=== PATIENT | female | born 1960 | race Caucasian/White ===

== ENCOUNTER 2017-01-22 11:20 | Emergency (ER) | payer OTHER ==
[~2017-01-22] VITALS: Ht 160 cm; Wt 126.1 kg
[2017-01-22] MEDS ORDERED: ADV250INH INH (11:31)
[2017-01-22] MEDS ORDERED: RANI15TA PO (11:31)
[2017-01-22] MEDS ORDERED: LEVO25TA5 PO (11:31)
[2017-01-22] MEDS ORDERED: XYZA5TAB2 PO (11:31)
[2017-01-22] MEDS ORDERED: SING10TA32 PO (11:31)
[2017-01-22] MEDS ORDERED: NS 1,000 ML IV ONE (12:15)
[2017-01-22 13:49] LABS: BASO % 0.3 % (0.0-1.0); EOS # 0.2 K/mm3 (0.0-0.50); EOS % 2.8 % (0.0-3.0); LARGE UNSTAINED CELL # 0.1 K/mm3 (0.0-0.4); LYMPH # 0.9 K/mm3 (1.5-4.5); LYMPH % 17.2 % (24.0-44.0); MEAN CORPUSCULAR HEMOGLOBIN 31.9 pg (27.0-33.0); MEAN CORPUSCULAR HGB CONC 32.9 g/dl (32.0-36.5); MEAN CORPUSCULAR VOLUME 97.1 fl (80.0-96.0); MONO # 0.3 K/mm3 (0.0-0.8); MONO % 6.1 % (0.0-5.0); NEUTROPHILS # 3.7 K/mm3 (1.8-7.7); NEUTROPHILS % 71.6 % (36.0-66.0); PLATELET COUNT, AUTOMATED 213 k/mm3 (150-450); RED CELL DISTRIBUTION WIDTH 12.6 % (11.5-14.5); WHITE BLOOD COUNT 5.2 K/mm3 (4.0-10.0)
[2017-01-22 14:04] LABS: ANION GAP 8 MEQ/L (8-16); BLOOD UREA NITROGEN 10 MG/DL (7-18); CALCIUM LEVEL 8.6 MG/DL (8.5-10.1); CARBON DIOXIDE LEVEL 27 MEQ/L (21-32); CHLORIDE LEVEL 109 MEQ/L (98-107); CREATININE FOR GFR 0.72 MG/DL (0.55-1.02); GLOMERULAR FILTRATION RATE > 60.0 (>51); GLUCOSE, FASTING 85 MG/DL (70-105); POTASSIUM SERUM 4.1 MEQ/L (3.5-5.1); SODIUM LEVEL 144 MEQ/L (136-145)
[2017-01-22] MEDS ORDERED: ISOVUE-370 76% 100ML VIAL (Q9967) As Ordered ONE (14:25)
[2017-01-22 14:26] LABS: ERYTHROCYTE SEDIMENTATION RATE 17 mm/hr (0-30)
--- NOTE | 2017-01-22 14:51 | REP ---
CT Head without contrast HISTORY: Headache COMPARISON: None There is no intraparenchymal hemorrhage, acute infarct, mass or midline shift. The ventricular system is normal in appearance. There is no extra cerebral collection. There is no fracture. The visualized sinuses are clear. IMPRESSION: There is no intracranial lesion. Signed by Elgin Miles MD 01/22/2017 02:42 P
--- NOTE | 2017-01-22 15:11 | REP ---
CT NECK WITH CONTRAST: HISTORY: Swelling. Contrast: Isovue 370, 75 mL. The naso-, margaret-, and hypopharynx, larynx, and subglottic trachea are normal in appearance. The salivary and thyroid glands are normal. Small lymph nodes less than 1 cm in size are present in the internal jugular chains, posterior triangles, submandibular and submental areas. Atherosclerotic calcification is present at the left carotid bifurcation. The lung apices are clear. Minimal mucosal thickening is present in the maxillary sinuses. IMPRESSION: There is no neck mass or adenopathy. Signed by Elgin Miles MD 01/22/2017 03:11 P
[2017-01-22] MEDS ORDERED: AUGM875T27 PO (15:49)
[2017-01-22 16:13] VITALS: BP 160/84
== END 2017-01-22 16:17 | disposition home or self-care (01) ==
LOC: M ED 11:59
DX: R22.1 Localized swelling, mass and lump, neck (principal)
CPT/HCPCS: 70450; 70491; 80048; 83615; 85025; 85652; 86140; 96360; 96361; 99283; Q9967

== ENCOUNTER → 2017-05-15 | Outpatient (CLI) | payer OTHER ==
[~2017-05-15] MED LIST: ADV250INH INH; AUGM875T28 PO; ISOVUE-370 76% 100ML VIAL (Q9967) As Ordered ONE; LEVO25TA5 PO; RANI15TA PO; SING10TA32 PO; XYZA5TAB2 PO
--- NOTE | 2017-05-15 10:07 | REP ---
Limited abdominal wall ultrasound for palpable lump: Ultrasonography of the palpable lump in the left upper quadrant inferior to the ribs identifies no definitive mass by ultrasound. The patient states the area is tender to transducer pressure. Consider MRI or CT to evaluate for lipoma. Signed by Moncho Gallegos MD 05/15/2017 09:57 A
== END ==
LOC: M RAD 09:14
PROVIDERS: ATTEND Emergency Medicine
DX: R19.02 Left upper quadrant abdominal swelling, mass and lump (principal)

== ENCOUNTER → 2017-05-18 | Outpatient (CLI) | payer OTHER ==
[~2017-05-18] MED LIST changes: -ISOVUE-370 76% 100ML VIAL (Q9967) As Ordered ONE
[2017-05-18 12:05] LABS: ANION GAP 6 MEQ/L (8-16); BLOOD UREA NITROGEN 14 MG/DL (7-18); CALCIUM LEVEL 9.4 MG/DL (8.5-10.1); CARBON DIOXIDE LEVEL 27 MEQ/L (21-32); CHLORIDE LEVEL 103 MEQ/L (98-107); CREATININE FOR GFR 0.84 MG/DL (0.55-1.02); GLOMERULAR FILTRATION RATE > 60.0 (>51); GLUCOSE, FASTING 97 MG/DL (70-105); POTASSIUM SERUM 4.2 MEQ/L (3.5-5.1); SODIUM LEVEL 136 MEQ/L (136-145)
--- NOTE | 2017-05-20 01:56 | REP ---
Clinical: Abdominal pain. Technique: Axial contrast enhanced images from the lung bases to the pubic symphysis using 100 ml Isovue 370 intravenous contrast material with coronal and sagittal re-formations. Findings: Lung bases are clear. Visualized heart and pericardium are normal. Liver, spleen, pancreas, gallbladder, bilateral adrenal glands and kidneys are normal. The enteric system is without obstruction or acute inflammatory process. Scattered sigmoid diverticula noted without acute diverticulitis. Pelvis demonstrates normal bladder and adnexa with evidence for prior hysterectomy. No pelvic fluid/ascites. No intraperitoneal or retroperitoneal adenopathy. No free air. No mass lesion. 2.5 cm fat containing periumbilical hernia noted. Vasculature appears normal and without aortic aneurysm or dissection. Musculoskeletal structures demonstrate age-related changes without focal osseous abnormality. Impression: Fat containing periumbilical hernia. Scattered sigmoid diverticula without acute diverticulitis. Evidence of prior hysterectomy. No ascites, adenopathy, or mass lesion appreciated. Signed by Rohan Church MD 05/20/2017 01:47 A
== END ==
LOC: M LAB 10:35
PROVIDERS: ATTEND Emergency Medicine
DX: R10.9 Unspecified abdominal pain (principal); K42.9 Umbilical hernia without obstruction or gangrene; K57.32 Diverticulitis of large intestine without perforation or abscess without bleeding; Z90.710 Acquired absence of both cervix and uterus

== ENCOUNTER → 2017-06-12 | Outpatient (CLI) | payer OTHER ==
--- NOTE | 2017-06-12 16:26 | REPMRS ---
Patient History The patient states she had a clinical breast exam in 05/2017. Patient is nulliparous. Family history of prostate cancer in paternal uncle at age 80. 2 benign excisional biopsies of the left breast, 1995. Digital Woman Screen Mammo: June 12, 2017 - Exam #: [id number] Bilateral CC and MLO view(s) were taken. Technologist: Vanita Gomez, Technologist Prior study comparison: April 10, 2016, digital woman screen mammo performed at [facility]. March 11, 2015, digital woman screen mammo performed at [facility]. FINDINGS: There are scattered fibroglandular densities. There has been no change in the appearance of the mammogram from the prior studies. There is a mild amount of residual fibroglandular tissue which is fairly symmetric. There is no interval development of dominant mass, architectural distortion, or clustered microcalcification suggestive of malignancy. ASSESSMENT: BI-RADS/ACR category 1 mammogram. Negative. Recommendation Routine screening mammogram in 1 year (for women over age 40). This mammogram was interpreted with the aid of an FDA-approved computer-aided dectection system. Electronically Signed By: Moncho Lopez MD 06/12/17 1065
== END ==
LOC: M WHC 14:51
PROVIDERS: ATTEND Nurse Practitioner Women's Health
DX: Z12.31 Encounter for screening mammogram for malignant neoplasm of breast (principal); Z92.89 Personal history of other medical treatment

== ENCOUNTER → 2017-06-17 | Outpatient (REF) | payer OTHER | LOC: M LABDRAW1 11:24 | PROVIDERS: ATTEND Nurse Practitioner Family | DX: Z13.220 Encounter for screening for lipoid disorders (principal) ==

== ENCOUNTER → 2018-09-15 | Outpatient (CLI) | payer OTHER ==
[2018-09-15 17:05] LABS: BASO % 0.5 % (0.0-1.0); EOS # 0.2 10^3/uL (0.0-0.50); EOS % 2.1 % (0.0-3.0); HEMATOCRIT 40.8 % (36.0-47.0); HEMOGLOBIN 13.4 g/dl (12.0-15.5); IMMATURE GRANULOCYTE % 0.3 % (0-3.0); LYMPH # 1.2 10^3/uL (1.5-4.5); LYMPH % 15.3 % (24.0-44.0); MEAN CORPUSCULAR HEMOGLOBIN 32.8 pg (27.0-33.0); MEAN CORPUSCULAR HGB CONC 32.8 g/dl (32.0-36.5); MEAN CORPUSCULAR VOLUME 99.8 fl (80.0-96.0); MONO # 0.6 10^3/uL (0.0-0.8); MONO % 7.7 % (0.0-5.0); NEUTROPHILS # 5.6 10^3/uL (1.8-7.7); NEUTROPHILS % 74.1 % (36.0-66.0); PLATELET COUNT, AUTOMATED 256 10^3/uL (150-450); RED BLOOD COUNT 4.09 10^6/uL (4.00-5.40); RED CELL DISTRIBUTION WIDTH 13.2 % (11.5-14.5); WHITE BLOOD COUNT 7.5 10^3/uL (4.0-10.0)
[2018-09-15 17:20] LABS: ALBUMIN 3.6 GM/DL (3.2-5.2); ALBUMIN/GLOBULIN RATIO 1.03 (1.00-1.93); ALKALINE PHOSPHATASE 100 U/L (45-117); ALT/SGPT 39 U/L (12-78); ANION GAP 7 MEQ/L (8-16); AST/SGOT 19 U/L (7-37); BILIRUBIN,TOTAL 0.5 MG/DL (0.2-1.0); BLOOD UREA NITROGEN 11 MG/DL (7-18); CALCIUM LEVEL 9.5 MG/DL (8.5-10.1); CARBON DIOXIDE LEVEL 31 MEQ/L (21-32); CHLORIDE LEVEL 101 MEQ/L (98-107); CREATININE FOR GFR 0.89 MG/DL (0.55-1.30); FREE T3 2.6 PG/ML (2.2-4.0); FREE T4 1.19 NG/DL (0.76-1.46); GLOMERULAR FILTRATION RATE > 60.0 (>51); GLUCOSE, FASTING 94 MG/DL (70-100); POTASSIUM SERUM 4.2 MEQ/L (3.5-5.1); SODIUM LEVEL 139 MEQ/L (136-145); TOTAL PROTEIN 7.1 GM/DL (6.4-8.2)
[2018-09-15 18:11] LABS: ERYTHROCYTE SEDIMENTATION RATE 22 mm/hr (0-30)
[2018-09-17 14:14] LABS: ANTINUCLEAR ANTIBODIES DIRECT Negative (Negative)
== END ==
LOC: M WUC 14:56
DX: R06.02 Shortness of breath (principal); E03.9 Hypothyroidism, unspecified; M25.50 Pain in unspecified joint
CPT/HCPCS: 84443

== ENCOUNTER → 2018-09-22 | Outpatient (CLI) | payer OTHER ==
[2018-09-22 20:33] LABS: ANION GAP 8 MEQ/L (8-16); BLOOD UREA NITROGEN 14 MG/DL (7-18); CALCIUM LEVEL 9.2 MG/DL (8.5-10.1); CARBON DIOXIDE LEVEL 31 MEQ/L (21-32); CHLORIDE LEVEL 98 MEQ/L (98-107); CREATININE FOR GFR 0.98 MG/DL (0.55-1.30); GLOMERULAR FILTRATION RATE > 60.0 (>51); GLUCOSE, FASTING 108 MG/DL (70-100); POTASSIUM SERUM 3.8 MEQ/L (3.5-5.1); SODIUM LEVEL 137 MEQ/L (136-145)
== END ==
LOC: M WUC 15:54
DX: R06.02 Shortness of breath (principal)
CPT/HCPCS: 80048

== ENCOUNTER → 2018-11-21 | Outpatient (CLI) | payer OTHER ==
--- NOTE | 2018-11-21 15:05 | REPMRS ---
Patient History The patient states she had a clinical breast exam in 10/2018. Patient is nulliparous. Family history of prostate cancer at age 80 in paternal uncle, pancreatic cancer at age 65 in paternal cousin. 2 benign excisional biopsies of the left breast, 1995. Digital Woman Screen Mammo: November 21, 2018 - Exam #: [id number] Bilateral CC and MLO view(s) were taken. Technologist: Adia Yarbrough Technologist Prior study comparison: June 12, 2017, digital woman screen mammo performed at [facility]. April 10, 2016, digital woman screen mammo performed at [facility]. March 11, 2015, digital woman screen mammo performed at [facility]. FINDINGS: The breast tissue is almost entirely fat. There has been no change in the appearance of the mammogram from the prior studies. There is no interval development of dominant mass, architectural distortion, or clustered microcalcification typical of malignancy. 3-D tomosynthesis shows no additional findings. Assessment: BI-RADS/ACR category 1 mammogram. Negative Mammogram. Recommendation Routine screening mammogram of both breasts in 1 year (for women over age 40). This patient's Lifetime Breast Cancer RIsk is estimated at 11.3 %. This mammogram was interpreted with the aid of an FDA-approved computer-aided dectection system. Electronically Signed By: Adrian Jimenez MD 11/21/18 [id number]
== END ==
LOC: M WHC 10:09
PROVIDERS: ATTEND Nurse Practitioner Women's Health
DX: Z12.31 Encounter for screening mammogram for malignant neoplasm of breast (principal); Z86.018 Personal history of other benign neoplasm

== ENCOUNTER → 2019-08-25 | Outpatient (CLI) | payer OTHER ==
[2019-08-25 07:21] LABS: BASO % 0.4 % (0.0-1.0); EOS # 0.1 10^3/uL (0.0-0.5); EOS % 1.7 % (0.0-3.0); HEMATOCRIT 43.3 % (36.0-47.0); HEMOGLOBIN 14.2 g/dl (12.0-15.5); LYMPH # 1.3 10^3/uL (1.5-5.0); LYMPH % 17.5 % (24.0-44.0); MEAN CORPUSCULAR HEMOGLOBIN 32.9 pg (27.0-33.0); MEAN CORPUSCULAR HGB CONC 32.8 g/dl (32.0-36.5); MEAN CORPUSCULAR VOLUME 100.2 fl (80.0-96.0); MONO # 0.6 10^3/uL (0.0-0.8); MONO % 7.3 % (0.0-5.0); NEUTROPHILS # 5.5 10^3/uL (1.5-8.5); NEUTROPHILS % 72.6 % (36.0-66.0); PLATELET COUNT, AUTOMATED 254 10^3/uL (150-450); RED BLOOD COUNT 4.32 10^6/uL (4.00-5.40); WHITE BLOOD COUNT 7.5 10^3/uL (4.0-10.0)
[2019-08-25 07:52] LABS: ALBUMIN 3.3 GM/DL (3.2-5.2); ALT/SGPT 44 U/L (12-78); BILIRUBIN,TOTAL 0.4 MG/DL (0.2-1.0); BLOOD UREA NITROGEN 13 MG/DL (7-18); CALCIUM LEVEL 8.8 MG/DL (8.5-10.1); CARBON DIOXIDE LEVEL 30 MEQ/L (21-32); CHLORIDE LEVEL 104 MEQ/L (98-107); CHOLESTEROL LEVEL 223 MG/DL (<200); CHOLESTEROL RISK RATIO 3.185 (<5); FREE T4 1.13 NG/DL (0.76-1.46); GLOMERULAR FILTRATION RATE > 60.0 (>51); GLUCOSE, FASTING 124 MG/DL (70-100); HDL CHOLESTEROL 70 MG/DL (>40); LDL CHOLESTEROL 125 MG/DL (<100); NON-HDL-C 153 MG/DL; SODIUM LEVEL 141 MEQ/L (136-145); TOTAL PROTEIN 7.4 GM/DL (6.4-8.2); TRIGLYCERIDES LEVEL 141 MG/DL (<150)
== END ==
LOC: M LAB 06:54
PROVIDERS: ATTEND Physician Assistant Medical
DX: R60.1 Generalized edema (principal); E03.9 Hypothyroidism, unspecified; E66.01 Morbid (severe) obesity due to excess calories

== ENCOUNTER → 2019-09-11 | Outpatient (CLI) | payer OTHER ==
--- NOTE | 2019-09-14 11:45 | ECHO ---
DATE OF STUDY: 09/11/2019 REFERRING PROVIDER: Peggy Garrido PA-C INDICATION: Edema. HEIGHT: 163 cm. WEIGHT: 132 kg. 2D MEASUREMENTS: Aortic root 2.7 cm Left atrium 3.9 cm Left atrial volume index 17 cm Ventricular septum 0.8 cm Posterior wall 0.95 cm Inferior vena cava 1.6 cm DOPPLER MEASUREMENTS: Aortic valve velocity 149 cm/s LVOT velocity 120 cm/s LVOT VTI 32.4 cm No aortic regurgitation. No mitral regurgitation. Trace tricuspid regurgitation. No pulmonic regurgitation. Mitral E velocity 117 cm/s Mitral A velocity 60.7 cm/s Mitral deceleration time 232 ms Estimated right ventricle systolic pressure 34-39 mmHg assuming a right atrial pressure of 5-10 mmHg MITRAL ANNULAR TISSUE DOPPLER: E prime septal 7.9 cm/s E prime septal 12.1 cm/s DESCRIPTION: Rhythm was sinus. This was a moderately technically difficulty echocardiogram. No pericardial effusion. CONCLUSIONS: 1. Normal left ventricle internal dimensions and wall thickness. Normal regional LV wall motion and wall thickening. Normal LV systolic function. LVEF 70% by visual estimate. Normal LV diastolic function. Normal left atrial size by left atrial volume index. 2. Suggestive of mild elevation of estimated right ventricle systolic pressure. Trace tricuspid regurgitation. Normal IVC diameter. Unable to assess central venous pressure due to technically difficult visualization of the inferior vene cava. Otherwise, normal appearing echocardiogram Doppler findings. Moderately technically difficult echocardiogram.
== END ==
LOC: M CARPUL 08:00
PROVIDERS: ATTEND Physician Assistant Medical
DX: R60.1 Generalized edema (principal)

== ENCOUNTER → 2019-10-26 | Outpatient (CLI) | payer OTHER ==
[2019-10-26 10:15] LABS: HEMOGLOBIN A1c 6.4 %
== END ==
LOC: M LAB 06:57
PROVIDERS: ATTEND Physician Assistant Medical
DX: R73.01 Impaired fasting glucose (principal)

== ENCOUNTER → 2020-02-09 | Outpatient (CLI) | payer OTHER ==
--- NOTE | 2020-02-10 16:52 | SLEEPHOME ---
DATE OF PROCEDURE: 02/09/2020 Ordered by: Dr. Escalona Diagnostic home sleep testing was performed due to concern for the obstructive sleep apnea syndrome. For testing, a nocturnal T3 respiratory monitoring device was used. Continuous record was made of pulse, oxygen saturation, airflow, chest, abdominal strain and body position. 9 hours and 59 minutes of data were reviewed. There were 8 hours and 43 minutes marked as time in bed. During the interval marked time in bed there were 950 respiratory events identified of 10 seconds in duration or greater for a respiratory event index of 108.8. The events were obstructive, not exclusive to position. Baseline pulse rate 86, pulse rate ranged 69-111. Baseline saturation 86%. Saturations fell to 51%. Testing was performed in both the supine and nonsupine positions. IMPRESSION Abnormal home sleep testing with repetitive respiratory events and oxygen desaturations to 51% with a respiratory event index of 108.8 is consistent with severe obstructive sleep apnea syndrome. RECOMMENDATIONS The patient should be encouraged to undergo formal sleep evaluation at her earliest convenience.
== END ==
LOC: M SLEEP HO 11:29
PROVIDERS: ATTEND Internal Medicine Pulmonary Disease
DX: G47.30 Sleep apnea, unspecified (principal)

== ENCOUNTER → 2020-06-04 | Outpatient (CLI) | payer OTHER ==
[2020-07-02 09:53] LABS: BASO # 0.1 10^3/uL (0.0-0.2); BASO % 0.8 % (0.0-1.0); EOS # 0.2 10^3/uL (0.0-0.5); EOS % 2.5 % (0.0-3.0); HEMATOCRIT 43.8 % (36.0-47.0); HEMOGLOBIN 14.4 g/dl (12.0-15.5); LYMPH # 1.1 10^3/uL (1.5-5.0); LYMPH % 14.1 % (24.0-44.0); MEAN CORPUSCULAR HEMOGLOBIN 32.7 pg (27.0-33.0); MEAN CORPUSCULAR HGB CONC 32.9 g/dl (32.0-36.5); MEAN CORPUSCULAR VOLUME 99.3 fl (80.0-96.0); MONO # 0.6 10^3/uL (0.0-0.8); MONO % 7.6 % (0.0-5.0); NEUTROPHILS # 5.7 10^3/uL (1.5-8.5); NEUTROPHILS % 74.5 % (36.0-66.0); PLATELET COUNT, AUTOMATED 220 10^3/uL (150-450); RED BLOOD COUNT 4.41 10^6/uL (4.00-5.40); WHITE BLOOD COUNT 7.7 10^3/uL (4.0-10.0)
[2020-07-11 09:04] LABS: ALBUMIN 3.3 GM/DL (3.2-5.2); ALT/SGPT 73 U/L (12-78); BILIRUBIN,TOTAL 0.5 MG/DL (0.2-1.0); BLOOD UREA NITROGEN 13 MG/DL (7-18); CALCIUM LEVEL 9.1 MG/DL (8.5-10.1); CARBON DIOXIDE LEVEL 24 MEQ/L (21-32); CHLORIDE LEVEL 108 MEQ/L (98-107); CHOLESTEROL LEVEL 228 MG/DL (<200); CHOLESTEROL RISK RATIO 3.931 (<5); CREATININE FOR GFR 0.89 MG/DL (0.55-1.30); FREE T4 1.09 NG/DL (0.76-1.46); GLOMERULAR FILTRATION RATE > 60.0 (>51); GLUCOSE, FASTING 110 MG/DL (70-100); HDL CHOLESTEROL 58 MG/DL (>40); HEMOGLOBIN A1c 5.8 %; LDL CHOLESTEROL 129 MG/DL (<100); NON-HDL-C 170 MG/DL; POTASSIUM SERUM 4.8 MEQ/L (3.5-5.1); SODIUM LEVEL 142 MEQ/L (136-145); TOTAL PROTEIN 7.1 GM/DL (6.4-8.2); TRIGLYCERIDES LEVEL 207 MG/DL (<150)
== END ==
LOC: M LAB 08:46
PROVIDERS: ATTEND Physician Assistant
DX: R73.01 Impaired fasting glucose (principal); E03.9 Hypothyroidism, unspecified; J45.909 Unspecified asthma, uncomplicated

== ENCOUNTER 2020-06-19 16:41 | Emergency (ER) | payer OTHER ==
[2020-06-19] MEDS ORDERED: MORPHINE 4 MG/ML 1ML VIAL/SYRINGE (J2270) IV ONE (17:00)
[2020-06-19] MEDS ORDERED: diazePAM 10MG/2ML SYRINGE (J3360 PER 5MG) IV ONE ×2 (17:00→19:00)
[2020-06-19] MEDS ORDERED: ONDANSETRON 4MG/2ML VIAL IV ONE (17:00)
[2020-06-19] MEDS ORDERED: KETOROLAC 30 MG/ML 1ML VIAL IV ONE (17:30)
[2020-06-19] MEDS: MORPHINE 4 MG/ML 1ML VIAL/SYRINGE (J2270) IV PRN ×2 (17:52→18:47)
[2020-06-19] MEDS ORDERED: ACETAMINOPHEN *IV* 1,000 MG in IV 1 EA IV ONE (19:30)
[2020-06-19] MEDS ORDERED: NS 1,000 ML IV ONE (19:30)
[2020-06-19 21:07] VITALS: BP 154/72
[2020-06-19] MEDS ORDERED: ONDANSETRON 4 MG ORAL DISINTEGRATING TAB As Ordered ONE (21:18)
[2020-06-19] MEDS ORDERED: ONDANSETRON 4 MG ORAL DISINTEGRATING TAB PO ONE (21:30)
== END 2020-06-19 21:27 | disposition home or self-care (01) ==
LOC: M ED 16:41
DX: M62.830 Muscle spasm of back (principal); J45.909 Unspecified asthma, uncomplicated; E07.9 Disorder of thyroid, unspecified; G47.33 Obstructive sleep apnea (adult) (pediatric); L50.8 Other urticaria; E66.8 Other obesity; Z79.899 Other long term (current) drug therapy; Z79.890 Hormone replacement therapy; Z88.1 Allergy status to other antibiotic agents; Z88.8 Allergy status to other drugs, medicaments and biological substances; Z91.018 Allergy to other foods
CPT/HCPCS: 96361; 96374; 96375; 96376; 99284; J0131; J1885; J2270; J2405; J3360; Q0162

== ENCOUNTER → 2020-06-29 | Outpatient (CLI) | payer OTHER ==
--- NOTE | 2020-06-29 08:58 | REPVR ---
PROCEDURE INFORMATION: Exam: MR Lumbar Spine Without Contrast. Exam date and time: 06/29/2020 7:47 AM Age: 60 years old Clinical indication: Numbness; Low back pain; Additional info: Lbp and numbness TECHNIQUE: Imaging protocol: Multiplanar magnetic resonance images of the lumbar spine without intravenous contrast. COMPARISON: No relevant prior studies available. FINDINGS: Vertebrae: The lumbar vertebral bodies are normal in height,signal intensity and alignment.No acute fracture or dislocation is seen. Spinal epidural space: There is prominence of the posterior epidural fat from L4-S1 level causing secondary spinal canal stenosis.. Spinal cord: The conus medullaris is normal. The cauda equina nerve roots demonstrate no crowding or displacement. L1-L2: There is no significant degenerative disc herniation.The spinal canal and neural foramina are patent and without significant stenosis. L2-L3: There is no significant degenerative disc herniation.The spinal canal and neural foramina are patent and without significant stenosis. L3-L4: Small left foraminal protrusion.The facet joints demonstrate mild degenerative hypertrophy and sclerosis.There is mild left foraminal stenosis. L4-L5: Mildly reduced in height and T2 signal indicating degeneration.There is a mild diffuse posterior bulge causing mild effacement of the thecal sac.The facet joints demonstrate moderate degenerative narrowing and sclerosis. There is prominence of the posterior epidural fat causing moderate secondary spinal canal stenosis.There is no evidence of foraminal stenosis. L5-S1: There is no significant degenerative disc herniation.The spinal canal and neural foramina are patent and without significant stenosis. Moderate facet arthropathy. Soft tissues: The prevertebral soft tissues appear normal. IMPRESSION: MRI of the lumbar spine reveals multilevel degenerative spondylitic changes and degenerative disc disease, most significant at L4-L5 level as described above. Electronically signed by: Bakari Zafar On 06/29/2020 08:58:33 AM
== END ==
LOC: M RAD 06:57
PROVIDERS: ATTEND Physician Assistant
DX: M47.817 Spondylosis without myelopathy or radiculopathy, lumbosacral region (principal); M47.816 Spondylosis without myelopathy or radiculopathy, lumbar region

== ENCOUNTER 2020-07-01 15:15 | Outpatient (RCR) | payer OTHER | END 2020-07-27 | LOC: M PT 15:15 | PROVIDERS: ATTEND Physician Assistant | DX: M54.16 Radiculopathy, lumbar region (principal); M62.830 Muscle spasm of back ==

== ENCOUNTER → 2020-08-25 | Outpatient (CLI) | payer OTHER | LOC: M LABSMTC 09:58 | PROVIDERS: ATTEND Pediatrics | DX: Z11.59 Encounter for screening for other viral diseases (principal); Z20.828 Contact with and (suspected) exposure to other viral communicable diseases | CPT/HCPCS: C9803; U0003 ==

== ENCOUNTER → 2020-08-28 | Outpatient (CLI) | payer OTHER | LOC: M LABSMTC 11:14 | PROVIDERS: ATTEND Pediatrics | DX: Z20.828 Contact with and (suspected) exposure to other viral communicable diseases (principal) ==

== ENCOUNTER → 2020-08-31 | Outpatient (CLI) | payer SELFPAY | LOC: M LABSMTC 09:36 | PROVIDERS: ATTEND Pediatrics | DX: Z20.828 Contact with and (suspected) exposure to other viral communicable diseases (principal) ==

== ENCOUNTER → 2020-09-03 | Outpatient (CLI) | payer SELFPAY | LOC: M LABSMTC 10:43 | PROVIDERS: ATTEND Pediatrics | DX: Z20.828 Contact with and (suspected) exposure to other viral communicable diseases (principal) ==

== ENCOUNTER → 2020-09-07 | Outpatient (CLI) | payer SELFPAY | LOC: M LABSMTC 09:56 | PROVIDERS: ATTEND Pediatrics | DX: Z20.828 Contact with and (suspected) exposure to other viral communicable diseases (principal) ==

== ENCOUNTER → 2020-12-30 | Outpatient (CLI) | payer OTHER ==
--- NOTE | 2020-12-30 16:20 | REP ---
INDICATION: Z12.31 SCREENING MAMMO. COMPARISON: 11/21/2018 as well as other prior exams. TECHNIQUE: MLO and CC views of both breasts performed with tomosynthesis. FINDINGS: Very mild scattered fibroglandular tissue is present bilaterally with no mass or architectural distortion. However, new tiny pleomorphic microcalcifications are seen in the medial right breast somewhat inferiorly. Magnification views are recommended further evaluate. The Volpara volumetric breast density pattern is B. IMPRESSION: BIRADS/ACR category 0, incomplete. There are clustered pleomorphic microcalcifications medially and somewhat inferiorly in the right breast. Recommend magnification views to further evaluate. This patient's Tyrer-Cuzick lifetime breast cancer risk assessment score is 10.7%. This mammogram was interpreted with the aid of an FDA-approved computer-aided detection system. The patient states she had a clinical breast exam in over 1 year ago. The patient letter being requested is M0. RECOMMENDATION: Recommend magnification views right breast as above. <Electronically signed by Moncho Lopez > 12/30/20 [id number]
== END ==
LOC: M WHC 14:45
PROVIDERS: ATTEND Family Medicine
DX: R92.2 Inconclusive mammogram (principal)

== ENCOUNTER → 2021-01-10 | Outpatient (CLI) | payer OTHER ==
--- NOTE | 2021-01-10 12:29 | REP ---
INDICATION: ADDITIONAL VIEWS RT BREAST. COMPARISON: Comparison mammography December 30, 2020. 21 November 2018 prior mammography is also reviewed. TECHNIQUE: Magnified focal spot-compression CC, mL, and MLO views of the right breast are obtained. A non magnified true mL view with 3D tomography is carried out. This mammogram was interpreted with the aid of an FDA-approved computer-aided detection system. FINDINGS: Diagnostic mammographic views demonstrate a grouping of polymorphic microcalcifications in the right breast superiorly and slightly medially at approximately 1 o'clock position. These are new and must be considered suspicious. There are also some benign vascular calcifications visible in the upper outer quadrant. No other mammographic finding. IMPRESSION: BIRADS/ACR category 4 suspicious right breast mammographic findings. Histologic sampling is recommended. This patient's Tyrer-Cuzick lifetime breast cancer risk assessment score is 10.7%. RECOMMENDATION: Stereotactic needle biopsy recommended right breast with marker clip placement and post clip placement right breast mammography.. The patient letter being requested is M4. <Electronically signed by Adrian Jimenez > 01/10/21 [id number]
== END ==
LOC: M WHC 11:48
PROVIDERS: ATTEND Family Medicine
DX: R92.8 Other abnormal and inconclusive findings on diagnostic imaging of breast (principal)

== ENCOUNTER → 2021-02-01 | Outpatient (CLI) | payer OTHER ==
[~2021-02-01] MED LIST changes: +BENE1POW5 PO; +VITMTA PO
[2021-02-01 14:15] VITALS: BP 132/82
--- NOTE | 2021-02-01 14:44 | REP ---
INDICATION: R92.8 ABN MAMMO RT BREAST,STEREOTACTIC BIOPSY. COMPARISON: 01/10/2021. TECHNIQUE: Specimen radiograph performed. FINDINGS: Multiple pleomorphic micro calcifications are seen in the specimens from stereotactic biopsy of the right breast. IMPRESSION: Successful sampling of pleomorphic microcalcifications right breast. RECOMMENDATION: Clinical follow-up. <Electronically signed by Moncho Lopez > 02/01/21 1733
--- NOTE | 2021-02-01 14:47 | REP ---
INDICATION: R92.8 ABN MAMMO RT BREAST,POST STEREOTACTIC BIOPSY. COMPARISON: 12/30/2020, 01/10/2021. TECHNIQUE: ML and CC views right breast following stereotactic biopsy of clustered pleomorphic microcalcifications upper inner aspect. FINDINGS: Biopsy clip is seen at the site of the previously identified calcifications. There is a decreased number of calcifications with several residual calcifications present. IMPRESSION: Successful sampling of pleomorphic microcalcifications upper inner right breast, with appropriate biopsy clip placement. RECOMMENDATION: Clinical follow-up. <Electronically signed by Moncho Lopez > 02/01/21 1446
--- NOTE | 2021-02-01 14:57 | REP ---
INDICATION: R92.8 ABN MAMMO RT BREAST,STEREOTACTIC BIOPSY. COMPARISON: 01/11/2020. TECHNIQUE: Stereotactic guidance was provided for Dr. Shah who performed stereotactic biopsy of clustered pleomorphic microcalcifications in the upper inner right breast. FINDINGS: Calcifications are seen in the biopsy window. IMPRESSION: Certificate guidance provided for Dr. Shah who performed stereotactic biopsy of clustered pleomorphic microcalcifications in the upper inner right breast. RECOMMENDATION: Clinical follow-up. <Electronically signed by Moncho Lopez > 02/01/21 [id number]
--- NOTE | 2021-02-01 16:29 | REP ---
INDICATION: DION PALPABLE MASSES IN THE SUPRACLAVICULAR AREA. COMPARISON: None. TECHNIQUE: Real-time sonographic evaluation of supraclavicular regions performed at the site of reported bilateral supraclavicular palpable abnormalities. FINDINGS: In the right supraclavicular region there is an oval nodule of mixed echogenicity which is solid, with similar echotexture to adjacent superficial soft tissues. A similar appearing oval nodule is seen in the left supraclavicular region 4.3 x 1.4 x 2.3 cm. IMPRESSION: Oval solid nodule seen in the supraclavicular regions bilaterally. Differential diagnosis would include mildly enlarged lymph nodes versus lipomas. Further evaluation may be made with CT neck with IV contrast. <Electronically signed by Moncho Lopez > 02/01/21 0611
--- NOTE | 2021-02-01 17:23 | ROOPDOC ---
[facility] Report Of Operation Report of Operation DATE OF PROCEDURE: 02/01/21 DIAGNOSIS: right breast suspicious calcifications PROCEDURE: right breast stereotactic biopsy with clip placement SURGEON: Lexi Isbell BLOOD LOSS: minimal Lidocaine 1% LOT [id number] Expiration 09/2021 Sodium Bicarbonate 8.4% LOT [id number] Expiration 11/2021 Hydromark clip LOT [id number] Expiration 09/2023 SHAPE : 3 Bx device: Stereotactic Mammotome Revolve Dual Vacuum- assisted Biopsy System 10 G LOT [id number] Expiration 10/2023 Informed consent was obtained in the preop area. The most common risk and possible complications including bleeding, hematoma, bruising, infection, injury to surrounding structures were explained to the patient and patient expressed understanding. Patient was taken to the procedure room and placed prone on the [employer] [facility] Prone Breast Biopsy table with the right breast hanging through the table aperture. Right breast was placed into Cranio-Caudal compression and Beaver Trapper orly images were taken. Suspicious calcifications were identified on the orly images and target was set. CC approach from the bottom was chosen for this procedure. At this time, since we were able to confirm visibility of the suspicious calcifications and patient tolerated prone positioning allowing to proceed with the biopsy, appropriate time out was done stating patients name, date of , and the procedure to be performed. The right breast in CC compression was prepped in the usual fashion. Plain Lidocaine 1% and 8.4% sodium bicarbonate 10:1 mix was used to anesthetize the skin, the biopsy site and tissues along the anticipated biopsy tract. Small skin incision was made with blade number 11. Mammotome 10 G stereotactic breast biopsy device was inserted through the incision and advanced to the previously set coordinates marking the target lesion. Pre-fire imaging was taken to assure appropriate positioning. At this time, Mammotome 10 G breast biopsy device was fired and five vacuum assisted biopsies were collected. The biopsy samples were investigated with [employer] system and calcifications from target lesion were observed. Biopsy samples were then placed in the formaldehyde, marked with patients name and right breast biopsy site, and sent to pathology for evaluation. SHAPE 3 Hydromark clip was placed into the Mammotome biopsy device channel and deployed. Post-deployment imaging was done to assure appropriate clip deployment. Clip was noted in the right breast. At this point, paddle CC compression of the right breast was released and manual pressure was held to decrease harmonic effect and to assure hemostasis. No bleeding was noted upon removal of the pressure. Patient was slowly repositioned and placed into sitting position, and then assisted off the table. Post-biopsy mammogram of the right breast was obtained and showed clip in expec denia position. Postprocedural dressing was placed. Patient tolerated procedure well and was taken to the recovery unit in stable condition. Discharge instructions were discussed with the patient and patient expressed understanding. LEXI ISBELL DO Feb 01, 2021 17:23
== END ==
LOC: M WHC 06:38
PROVIDERS: ATTEND Surgery
DX: R92.8 Other abnormal and inconclusive findings on diagnostic imaging of breast (principal)

== ENCOUNTER → 2021-02-11 | Outpatient (CLI) | payer OTHER ==
[2021-02-11 11:20] LABS: BASO # 0.1 10^3/uL (0.0-0.2); BASO % 0.8 % (0.0-1.0); EOS # 0.2 10^3/uL (0.0-0.5); EOS % 1.9 % (0.0-3.0); HEMATOCRIT 43.1 % (36.0-47.0); HEMOGLOBIN 13.9 g/dl (12.0-15.5); LYMPH # 1.1 10^3/uL (1.5-5.0); LYMPH % 14.7 % (24.0-44.0); MEAN CORPUSCULAR HEMOGLOBIN 32.4 pg (27.0-33.0); MEAN CORPUSCULAR HGB CONC 32.3 g/dl (32.0-36.5); MEAN CORPUSCULAR VOLUME 100.5 fl (80.0-96.0); MONO # 0.6 10^3/uL (0.0-0.8); MONO % 7.8 % (2.0-8.0); NEUTROPHILS # 5.8 10^3/uL (1.5-8.5); NEUTROPHILS % 74.4 % (36.0-66.0); PLATELET COUNT, AUTOMATED 219 10^3/uL (150-450); RED BLOOD COUNT 4.29 10^6/uL (4.00-5.40); WHITE BLOOD COUNT 7.8 10^3/uL (4.0-10.0)
[2021-02-11 11:47] LABS: ALBUMIN 3.3 GM/DL (3.2-5.2); ALT/SGPT 41 U/L (12-78); BILIRUBIN,TOTAL 0.6 MG/DL (0.2-1.0); BLOOD UREA NITROGEN 14 MG/DL (7-18); CALCIUM LEVEL 9.1 MG/DL (8.5-10.1); CARBON DIOXIDE LEVEL 29 MEQ/L (21-32); CHLORIDE LEVEL 106 MEQ/L (98-107); CHOLESTEROL LEVEL 226 MG/DL (<200); CHOLESTEROL RISK RATIO 3.275 (<5); CREATININE FOR GFR 0.84 MG/DL (0.55-1.30); GLOMERULAR FILTRATION RATE > 60.0 (>51); GLUCOSE, FASTING 100 MG/DL (70-100); HDL CHOLESTEROL 69 MG/DL (>40); LDL CHOLESTEROL 129 MG/DL (<100); NON-HDL-C 157 MG/DL; POTASSIUM SERUM 4.3 MEQ/L (3.5-5.1); SODIUM LEVEL 142 MEQ/L (136-145); TOTAL PROTEIN 6.8 GM/DL (6.4-8.2); TRIGLYCERIDES LEVEL 142 MG/DL (<150)
== END ==
LOC: M LAB 09:02
PROVIDERS: ATTEND Family Medicine
DX: E03.9 Hypothyroidism, unspecified (principal); Z13.29 Encounter for screening for other suspected endocrine disorder; Z13.220 Encounter for screening for lipoid disorders; Z13.0 Encounter for screening for diseases of the blood and blood-forming organs and certain disorders involving the immune mechanism

== ENCOUNTER → 2021-02-20 | Outpatient (CLI) | payer OTHER ==
[~2021-02-20] MED LIST changes: +ISOVUE-370 76% 100ML VIAL As Ordered ONE
--- NOTE | 2021-02-20 08:55 | REPVR ---
PROCEDURE INFORMATION: Exam: CT Neck With Contrast Exam date and time: 02/20/2021 8:30 AM Age: 60 years old Clinical indication: Enlarged lymph nodes; Localized; Additional info: Cervical lymphadenopathy bilaterally; supraclavicular TECHNIQUE: Imaging protocol: Computed tomography images of the neck with contrast. Radiation optimization: All CT scans at this facility use at least one of these dose optimization techniques: automated exposure control; mA and/or kV adjustment per patient size (includes targeted exams where dose is matched to clinical indication); or iterative reconstruction. Contrast material: ISOVUE 370; Contrast volume: 75 ml; Contrast route: INTRAVENOUS (IV); COMPARISON: CT Neck with contrast 01/22/2017 2:26 PM FINDINGS: Nasopharynx: Unremarkable. Oropharynx: Unremarkable. No significant tonsillar enlargement. Hypopharynx: Unremarkable. Larynx: Unremarkable. Normal epiglottis. Retropharyngeal space: Unremarkable. Submandibular/Parotid glands: Normal. Glands are normal in size. Thyroid: Normal. No enlarged or calcified nodules. Lymph nodes: Unremarkable. No lymphadenopathy. Trachea: Visualized trachea is unremarkable. Lungs: Unremarkable as visualized. Bones/joints: Unremarkable. No acute fracture. Soft tissues: Unremarkable. No significant soft tissue swelling. IMPRESSION: No acute findings. Electronically signed by: Collette Barney On 02/20/2021 08:55:02 AM
== END ==
LOC: M RAD 08:10
PROVIDERS: ATTEND Surgery
DX: R59.0 Localized enlarged lymph nodes (principal)
CPT/HCPCS: 70491; Q9967

== ENCOUNTER → 2021-08-28 | Outpatient (CLI) | payer OTHER ==
[~2021-08-28] MED LIST changes: -ISOVUE-370 76% 100ML VIAL As Ordered ONE
--- NOTE | 2021-08-28 15:49 | REP ---
INDICATION: ABNORMAL MAMMO OF RIGHT BREAST. COMPARISON: 02/01/2021, 01/10/2021, 12/30/2020. TECHNIQUE: MLO and CC views right breast with tomosynthesis. FINDINGS: Breast parenchyma is predominantly fatty replaced with mild scattered residual fibroglandular tissue. Biopsy clip is again seen in the medial right breast with a few residual tiny calcifications, status post benign stereotactic biopsy 02/01/2021. There is no evidence of new mass or clustered microcalcifications. IMPRESSION: BIRADS/ACR category 2, benign. There are few stable tiny residual calcifications in the medial right breast with adjacent biopsy clip, status post benign stereotactic biopsy. No new findings. This mammogram was interpreted with the aid of an FDA-approved computer-aided detection system. The patient letter being requested is M 1. RECOMMENDATION: Recommend follow-up bilateral mammogram December 2021. <Electronically signed by Moncho Lopez > 08/28/21 3138
== END ==
LOC: M WHC 14:55
PROVIDERS: ATTEND Surgery
DX: R92.8 Other abnormal and inconclusive findings on diagnostic imaging of breast (principal)
CPT/HCPCS: 77065; G0279

== ENCOUNTER → 2022-01-28 | Outpatient (CLI) | payer OTHER ==
[2022-01-28 09:17] LABS: BASO # 0.1 10^3/uL (0.0-0.2); BASO % 0.7 % (0.0-1.0); EOS # 0.2 10^3/uL (0.0-0.5); EOS % 2.1 % (0.0-3.0); HEMATOCRIT 41.1 % (36.0-47.0); HEMOGLOBIN 13.5 g/dl (12.0-15.5); LYMPH # 1.3 10^3/uL (1.5-5.0); LYMPH % 18.5 % (24.0-44.0); MEAN CORPUSCULAR HEMOGLOBIN 33.1 pg (27.0-33.0); MEAN CORPUSCULAR HGB CONC 32.8 g/dl (32.0-36.5); MEAN CORPUSCULAR VOLUME 100.7 fl (80.0-96.0); MONO # 0.7 10^3/uL (0.0-0.8); MONO % 9.5 % (2.0-8.0); NEUTROPHILS # 4.9 10^3/uL (1.5-8.5); NEUTROPHILS % 68.6 % (36.0-66.0); PLATELET COUNT, AUTOMATED 194 10^3/uL (150-450); RED BLOOD COUNT 4.08 10^6/uL (4.00-5.40); WHITE BLOOD COUNT 7.1 10^3/uL (4.0-10.0)
[2022-01-28 09:48] LABS: ALBUMIN 3.3 GM/DL (3.2-5.2); ALT/SGPT 45 U/L (12-78); BILIRUBIN,TOTAL 0.5 MG/DL (0.2-1.0); BLOOD UREA NITROGEN 12 MG/DL (7-18); CARBON DIOXIDE LEVEL 32 MEQ/L (21-32); CHLORIDE LEVEL 107 MEQ/L (98-107); CHOLESTEROL LEVEL 250 MG/DL (<200); CHOLESTEROL RISK RATIO 3.731 (<5); CREATININE FOR GFR 0.88 MG/DL (0.55-1.30); FREE T4 0.91 NG/DL (0.76-1.46); GLOMERULAR FILTRATION RATE > 60.0 (>51); GLUCOSE, FASTING 107 MG/DL (70-100); HDL CHOLESTEROL 67 MG/DL (>40); LDL CHOLESTEROL 154 MG/DL (<100); NON-HDL-C 183 MG/DL; POTASSIUM SERUM 4.6 MEQ/L (3.5-5.1); SODIUM LEVEL 145 MEQ/L (136-145); TOTAL PROTEIN 6.8 GM/DL (6.4-8.2); TRIGLYCERIDES LEVEL 145 MG/DL (<150)
== END ==
LOC: M LAB 08:44
PROVIDERS: ATTEND Physician Assistant
DX: J45.909 Unspecified asthma, uncomplicated (principal); E03.9 Hypothyroidism, unspecified; K21.9 Gastro-esophageal reflux disease without esophagitis; E66.8 Other obesity

== ENCOUNTER → 2022-04-18 | Outpatient (CLI) | payer OTHER | LOC: M WHC 06:45 | PROVIDERS: ATTEND Family Medicine | DX: Z12.31 Encounter for screening mammogram for malignant neoplasm of breast (principal); Z85.828 Personal history of other malignant neoplasm of skin; Z80.42 Family history of malignant neoplasm of prostate ==

== ENCOUNTER → 2022-11-01 | Outpatient (REF) | LOC: M EMP 12:16 | PROVIDERS: ATTEND Family Medicine | DX: Z11.52 Encounter for screening for COVID-19 (principal) ==

== ENCOUNTER → 2023-02-22 | Outpatient (CLI) | payer OTHER ==
[~2023-02-22] MED LIST changes: +MONT-5 PO; -SING10TA32 PO
[2023-02-22 10:59] LABS: BASO # 0.1 10^3/uL (0.0-0.2); BASO % 0.7 % (0.0-1.0); EOS # 0.2 10^3/uL (0.0-0.5); EOS % 2.4 % (0.0-3.0); HEMATOCRIT 42.3 % (36.0-47.0); HEMOGLOBIN 13.7 g/dl (12.0-15.5); LYMPH # 1.5 10^3/uL (1.5-5.0); LYMPH % 21.1 % (24.0-44.0); MEAN CORPUSCULAR HEMOGLOBIN 32.9 pg (27.0-33.0); MEAN CORPUSCULAR HGB CONC 32.4 g/dl (32.0-36.5); MEAN CORPUSCULAR VOLUME 101.4 fl (80.0-96.0); MONO # 0.6 10^3/uL (0.0-0.8); NEUTROPHILS # 4.7 10^3/uL (1.5-8.5); NEUTROPHILS % 66.4 % (36.0-66.0); PLATELET COUNT, AUTOMATED 219 10^3/uL (150-450); RED BLOOD COUNT 4.17 10^6/uL (4.00-5.40)
[2023-02-22 11:14] LABS: HEMOGLOBIN A1c 5.8 % (4.0-6.0)
[2023-02-22 11:27] LABS: ALBUMIN 3.2 G/DL (3.2-5.2); ALKALINE PHOSPHATASE 79 U/L (46-116); ALT/SGPT 36 U/L (7.0-40); AST/SGOT 28 U/L (<34); BILIRUBIN,TOTAL 0.6 MG/DL (0.3-1.2); BLOOD UREA NITROGEN 13 MG/DL (9-23); CALCIUM LEVEL 8.6 MG/DL (8.3-10.6); CARBON DIOXIDE LEVEL 31 MMOL/L (20-31); CHLORIDE LEVEL 106 MMOL/L (98-107); CHOLESTEROL LEVEL 221 MG/DL (<200); CHOLESTEROL RISK RATIO 3.42 (<5); CREATININE FOR GFR 0.79 MG/DL (0.55-1.30); GLOMERULAR FILTRATION RATE > 60.0 (>45); GLUCOSE, FASTING 106 MG/DL (74-106); HDL CHOLESTEROL 64.6 MG/DL (>40); LDL CHOLESTEROL 128.2 MG/DL (<100); NON-HDL-C 156.4 MG/DL; POTASSIUM SERUM 4.8 MMOL/L (3.5-5.1); SODIUM LEVEL 140 MMOL/L (136-145); TOTAL PROTEIN 6.3 G/DL (5.7-8.2); TRIGLYCERIDES LEVEL 141 MG/DL (<150)
[2023-02-22 11:29] LABS: FREE T4 0.96 NG/DL (0.89-1.76); THYROID STIMULATING HORMONE 2.102 uIU/ML (0.55-4.78)
== END ==
LOC: M WUC 08:09
PROVIDERS: ATTEND Nurse Practitioner Adult Health
DX: R73.01 Impaired fasting glucose (principal); E03.9 Hypothyroidism, unspecified; E78.00 Pure hypercholesterolemia, unspecified; G47.33 Obstructive sleep apnea (adult) (pediatric)

== ENCOUNTER → 2023-04-19 | Outpatient (CLI) | payer OTHER | LOC: M WHC 14:54 | PROVIDERS: ATTEND Family Medicine | DX: Z12.31 Encounter for screening mammogram for malignant neoplasm of breast (principal) ==

== ENCOUNTER 2023-12-23 07:47 | Emergency (ER) | payer OTHER ==
[~2023-12-23] VITALS: Ht 160 cm; Wt 127.3 kg
[2023-12-23] MEDS ORDERED: MONT10TA97 PO (08:05)
[2023-12-23] MEDS ORDERED: KETO2CR TOP (08:05)
[2023-12-23] MEDS ORDERED: PRED20TA (08:05)
[2023-12-23] MEDS ORDERED: FLUC200T4 (08:05)
[2023-12-23] MEDS ORDERED: ALBU2.5V10 INH (08:05)
[2023-12-23] MEDS ORDERED: LEVO50TA5 PO (08:05)
[2023-12-23] MEDS: methylPREDNISolone 125MG 2ML VIAL IV ONE (08:39)
[2023-12-23] MEDS: diphenhydrAMINE 50MG/ML VIAL IV ONE (08:39)
[2023-12-23] MEDS: NS 500 ML IV ONE (08:39)
[2023-12-23] MEDS: FAMOTIDINE 20MG/2ML VIAL IVP ONE (08:39)
[2023-12-23 08:46] LABS: BASO # 0.1 10^3/uL (0.0-0.2); BASO % 1.2 % (0.0-1.0); EOS # 0.4 10^3/uL (0.0-0.5); EOS % 4.5 % (0.0-3.0); HEMATOCRIT 43.4 % (36.0-47.0); HEMOGLOBIN 14.4 g/dl (12.0-15.5); LYMPH # 1.7 10^3/uL (1.5-5.0); LYMPH % 18.8 % (24.0-44.0); MEAN CORPUSCULAR HEMOGLOBIN 33.1 pg (27.0-33.0); MEAN CORPUSCULAR HGB CONC 33.2 g/dl (32.0-36.5); MEAN CORPUSCULAR VOLUME 99.8 fl (80.0-96.0); MONO # 0.8 10^3/uL (0.0-0.8); MONO % 8.8 % (2.0-8.0); NEUTROPHILS # 6.1 10^3/uL (1.5-8.5); NEUTROPHILS % 66.2 % (36.0-66.0); PLATELET COUNT, AUTOMATED 220 10^3/uL (150-450); RED BLOOD COUNT 4.35 10^6/uL (4.00-5.40); WHITE BLOOD COUNT 9.2 10^3/uL (4.0-10.0)
[2023-12-23 08:50] LABS: ERYTHROCYTE SEDIMENTATION RATE 18 mm/hr (0-30)
[2023-12-23 09:16] LABS: ALBUMIN 3.5 G/DL (3.2-5.2); ALKALINE PHOSPHATASE 81 U/L (46-116); ALT/SGPT 57 U/L (7.0-40); AST/SGOT 46 U/L (<34); BILIRUBIN,DIRECT 0.2 MG/DL (<0.4); BILIRUBIN,TOTAL 0.7 MG/DL (0.3-1.2); BLOOD UREA NITROGEN 14 MG/DL (9-23); CARBON DIOXIDE LEVEL 30 MMOL/L (20-31); CHLORIDE LEVEL 100 MMOL/L (98-107); CREATININE FOR GFR 0.78 MG/DL (0.55-1.30); GLOMERULAR FILTRATION RATE > 60.0 (>45); GLUCOSE, FASTING 114 MG/DL (74-106); POTASSIUM SERUM 3.9 MMOL/L (3.5-5.1); SODIUM LEVEL 137 MMOL/L (136-145); TOTAL PROTEIN 6.7 G/DL (5.7-8.2)
[2023-12-23 09:27] LABS: PROCALCITONIN <0.04 ng/ml
[2023-12-23] MEDS ORDERED: OMEP-173 PO (09:51)
[2023-12-23] MEDS ORDERED: MULT-40 PO (09:51)
[2023-12-23] MEDS ORDERED: LEVOTAB10 PO (09:51)
[2023-12-23] MEDS ORDERED: DIPH50CA PO (10:01)
[2023-12-23] MEDS ORDERED: DIPH-435 PO (10:01)
[2023-12-23] MEDS ORDERED: PEPC1TAB5 PO (10:01)
[2023-12-23] MEDS ORDERED: PRED20TA PO (10:03)
[2023-12-23] MEDS ORDERED: HOME MED LIST COMPLETE! XX SCH (10:10)
[2023-12-23 10:13] VITALS: BP 174/82; TEMP 96.8; O2SAT 97
== END 2023-12-23 10:20 | disposition home or self-care (01) ==
LOC: M ED 07:47
DX: T78.40XA Allergy, unspecified, initial encounter (principal); Y92.9 Unspecified place or not applicable; Y93.9 Activity, unspecified; Z88.8 Allergy status to other drugs, medicaments and biological substances; Z91.013 Allergy to seafood
CPT/HCPCS: 80048; 80076; 84145; 85025; 85652; 86140; 87040; 93041; 94760; 96361; 96374; 96375; 99284; J1200; J2930; S0028

== ENCOUNTER → 2024-02-26 | Outpatient (CLI) | payer OTHER ==
[~2024-02-26] MED LIST changes: +ALBU2.5V10 INH; +DIPH-435 PO; +DIPH50CA PO; +FLUC200T4; +KETO2CR TOP; +LEVO50TA5 PO; +LEVOTAB10 PO; +MONT10TA97 PO; +MULT-40 PO; +OMEP-173 PO; +PEPC1TAB5 PO; +PRED20TA; +PRED20TA PO
[2024-02-26 12:36] LABS: BASO # 0.1 10^3/uL (0.0-0.2); BASO % 0.8 % (0.0-1.0); EOS # 0.2 10^3/uL (0.0-0.5); EOS % 2.5 % (0.0-3.0); HEMATOCRIT 40.7 % (36.0-47.0); HEMOGLOBIN 13.5 g/dl (12.0-15.5); LYMPH # 1.3 10^3/uL (1.5-5.0); LYMPH % 17.7 % (24.0-44.0); MEAN CORPUSCULAR HEMOGLOBIN 32.8 pg (27.0-33.0); MEAN CORPUSCULAR HGB CONC 33.2 g/dl (32.0-36.5); MEAN CORPUSCULAR VOLUME 98.8 fl (80.0-96.0); MONO # 0.5 10^3/uL (0.0-0.8); MONO % 6.3 % (2.0-8.0); NEUTROPHILS # 5.3 10^3/uL (1.5-8.5); NEUTROPHILS % 72.2 % (36.0-66.0); PLATELET COUNT, AUTOMATED 213 10^3/uL (150-450); RED BLOOD COUNT 4.12 10^6/uL (4.00-5.40); WHITE BLOOD COUNT 7.3 10^3/uL (4.0-10.0)
[2024-02-26 12:39] LABS: ALKALINE PHOSPHATASE 83 U/L (46-116); ALT/SGPT 34 U/L (7.0-40); AST/SGOT 34 U/L (<34); BILIRUBIN,TOTAL 0.7 MG/DL (0.3-1.2); BLOOD UREA NITROGEN 12 MG/DL (9-23); CALCIUM LEVEL 9.3 MG/DL (8.3-10.6); CARBON DIOXIDE LEVEL 30 MMOL/L (20-31); CHLORIDE LEVEL 102 MMOL/L (98-107); CHOLESTEROL LEVEL 256 MG/DL (<200); CHOLESTEROL RISK RATIO 3.77 (<5); CREATININE FOR GFR 0.72 MG/DL (0.55-1.30); GLOMERULAR FILTRATION RATE > 60.0 (>45); GLUCOSE, FASTING 134 MG/DL (74-106); HDL CHOLESTEROL 67.9 MG/DL (>40); LDL CHOLESTEROL 143.7 MG/DL (<100); NON-HDL-C 188.1 MG/DL; POTASSIUM SERUM 4.3 MMOL/L (3.5-5.1); SODIUM LEVEL 141 MMOL/L (136-145); TOTAL PROTEIN 6.3 G/DL (5.7-8.2); TRIGLYCERIDES LEVEL 222 MG/DL (<150)
[2024-02-26 12:41] LABS: FREE T4 1.04 NG/DL (0.89-1.76); THYROID STIMULATING HORMONE 2.429 uIU/ML (0.55-4.78)
[2024-02-26 12:46] LABS: HEMOGLOBIN A1c 6.3 % (4.0-6.0)
== END ==
LOC: M WUC 09:50
PROVIDERS: ATTEND Nurse Practitioner Adult Health
DX: R73.01 Impaired fasting glucose (principal); E03.9 Hypothyroidism, unspecified; E78.00 Pure hypercholesterolemia, unspecified

== ENCOUNTER → 2024-04-20 | Outpatient (CLI) | payer OTHER | LOC: M WHC 11:08 | PROVIDERS: ATTEND Nurse Practitioner Adult Health | DX: Z12.31 Encounter for screening mammogram for malignant neoplasm of breast (principal) ==

== ENCOUNTER 2024-07-22 09:58 | Day surgery (SDC) | payer OTHER ==
[~2024-07-22] VITALS: Ht 160 cm; Wt 124.3 kg
[~2024-07-22 09:58] MED LIST changes: +DIPH25TA4 PO; +NS 1,000 ML IV ONE; +PROA1AER2 INH
[2024-07-22] MEDS ORDERED: LIDOCAINE 2% 100MG/5ML SDV (FOR ANES.) As Ordered ONE (11:38)
[2024-07-22] MEDS ORDERED: propofoL 200 MG/20 ML VIAL As Ordered ONE (11:39)
[2024-07-22 11:53] VITALS: TEMP 98.6
[2024-07-22 12:17] VITALS: BP 144/67; O2SAT 99
== END 2024-07-22 12:28 | disposition home or self-care (01) ==
LOC: M OPP 09:58
PROVIDERS: ATTEND Internal Medicine Gastroenterology
DX: Z12.11 Encounter for screening for malignant neoplasm of colon (principal); K64.0 First degree hemorrhoids; D12.2 Benign neoplasm of ascending colon; K57.30 Diverticulosis of large intestine without perforation or abscess without bleeding; F10.10 Alcohol abuse, uncomplicated; E03.9 Hypothyroidism, unspecified; R12 Heartburn; J45.909 Unspecified asthma, uncomplicated; G47.33 Obstructive sleep apnea (adult) (pediatric); Z88.1 Allergy status to other antibiotic agents; Z88.8 Allergy status to other drugs, medicaments and biological substances; Z91.013 Allergy to seafood; Z79.810 Long term (current) use of selective estrogen receptor modulators (SERMs)

== ENCOUNTER → 2024-08-28 | Outpatient (CLI) | payer OTHER ==
[~2024-08-28] MED LIST changes: -NS 1,000 ML IV ONE
[2024-08-28 11:23] LABS: BASO # 0.1 10^3/uL (0.0-0.2); BASO % 0.7 % (0.0-1.0); EOS # 0.2 10^3/uL (0.0-0.5); EOS % 2.6 % (0.0-3.0); HEMATOCRIT 38.7 % (36.0-47.0); HEMOGLOBIN 12.6 g/dl (12.0-15.5); LYMPH # 1.4 10^3/uL (1.5-5.0); MEAN CORPUSCULAR HEMOGLOBIN 31.8 pg (27.0-33.0); MEAN CORPUSCULAR HGB CONC 32.6 g/dl (32.0-36.5); MEAN CORPUSCULAR VOLUME 97.7 fl (80.0-96.0); MONO # 0.5 10^3/uL (0.0-0.8); MONO % 7.6 % (2.0-8.0); NEUTROPHILS # 4.7 10^3/uL (1.5-8.5); NEUTROPHILS % 67.7 % (36.0-66.0); PLATELET COUNT, AUTOMATED 232 10^3/uL (150-450); RED BLOOD COUNT 3.96 10^6/uL (4.00-5.40); WHITE BLOOD COUNT 6.9 10^3/uL (4.0-10.0)
[2024-08-28 11:32] LABS: HEMOGLOBIN A1c 6.2 % (4.0-6.0)
[2024-08-28 11:43] LABS: ALBUMIN 3.2 G/DL (3.2-5.2); ALKALINE PHOSPHATASE 92 U/L (35-104); ALT/SGPT 49 U/L (7.0-40); AST/SGOT 54 U/L (<34); BILIRUBIN,TOTAL 0.4 MG/DL (0.3-1.2); BLOOD UREA NITROGEN 9 MG/DL (9-23); CALCIUM LEVEL 9.2 MG/DL (8.3-10.6); CARBON DIOXIDE LEVEL 28 MMOL/L (20-31); CHLORIDE LEVEL 105 MMOL/L (98-107); CHOLESTEROL LEVEL 250 MG/DL (<200); CHOLESTEROL RISK RATIO 3.89 (<5); CREATININE FOR GFR 0.77 MG/DL (0.55-1.30); GLOMERULAR FILTRATION RATE > 60.0 (>45); GLUCOSE, FASTING 112 MG/DL (74-106); HDL CHOLESTEROL 64.2 MG/DL (>40); LDL CHOLESTEROL 137.4 MG/DL (<100); NON-HDL-C 185.8 MG/DL; POTASSIUM SERUM 4.2 MMOL/L (3.5-5.1); SODIUM LEVEL 141 MMOL/L (136-145); TOTAL PROTEIN 6.7 G/DL (5.7-8.2); TRIGLYCERIDES LEVEL 242 MG/DL (<150)
[2024-08-28 11:44] LABS: THYROID STIMULATING HORMONE 2.258 uIU/ML (0.55-4.78)
[2024-08-28 11:45] LABS: FREE T4 1.17 NG/DL (0.89-1.76)
== END ==
LOC: M WUC 08:49
PROVIDERS: ATTEND Nurse Practitioner Adult Health
DX: R73.01 Impaired fasting glucose (principal); E03.9 Hypothyroidism, unspecified; E78.00 Pure hypercholesterolemia, unspecified; G47.33 Obstructive sleep apnea (adult) (pediatric)

== ENCOUNTER → 2024-09-18 | Outpatient (CLI) | payer OTHER ==
[~2024-09-18] MED LIST changes: +FLUC-1; -FLUC200T4
== END ==
LOC: M PLAIMG 06:56
PROVIDERS: ATTEND Nurse Practitioner Adult Health
DX: M54.16 Radiculopathy, lumbar region (principal); M47.816 Spondylosis without myelopathy or radiculopathy, lumbar region

== ENCOUNTER → 2024-12-09 | Outpatient (CLI) | payer OTHER ==
[~2024-12-09] MED LIST changes: -ADV250INH INH; +ADVA1AER9 INH
== END ==
LOC: M RAD 14:07
PROVIDERS: ATTEND Nurse Practitioner Adult Health
DX: H69.92 Unspecified Eustachian tube disorder, left ear (principal)

== ENCOUNTER → 2024-12-30 | Outpatient (REF) | payer OTHER ==
[2024-12-30 18:31] LABS: BLOOD UREA NITROGEN 12 MG/DL (9-23); CREATININE FOR GFR 0.75 MG/DL (0.55-1.30); GLOMERULAR FILTRATION RATE > 60.0 (>45)
== END ==
LOC: M LABWUC 17:34
PROVIDERS: ATTEND Otolaryngology
DX: G47.33 Obstructive sleep apnea (adult) (pediatric) (principal); H69.92 Unspecified Eustachian tube disorder, left ear; R22.1 Localized swelling, mass and lump, neck

== ENCOUNTER → 2025-01-15 | Outpatient (CLI) | payer OTHER ==
[~2025-01-15] MED LIST changes: +ISOVUE-370 76% 100ML VIAL As Ordered ONE
== END ==
LOC: M RAD 13:16
PROVIDERS: ATTEND Otolaryngology
DX: R22.1 Localized swelling, mass and lump, neck (principal); H93.A2 Pulsatile tinnitus, left ear; J34.89 Other specified disorders of nose and nasal sinuses
CPT/HCPCS: 70491; 70544; 93880; Q9967

== ENCOUNTER → 2025-03-11 | Outpatient (CLI) | payer OTHER ==
[~2025-03-11] MED LIST changes: -ISOVUE-370 76% 100ML VIAL As Ordered ONE
[2025-03-11 14:43] LABS: BASO # 0.1 10^3/uL (0.0-0.2); BASO % 0.8 % (0.0-1.0); EOS # 0.2 10^3/uL (0.0-0.5); EOS % 3.2 % (0.0-3.0); HEMATOCRIT 39.6 % (36.0-47.0); HEMOGLOBIN 12.5 g/dl (12.0-15.5); LYMPH # 1.4 10^3/uL (1.5-5.0); MEAN CORPUSCULAR HEMOGLOBIN 30.1 pg (27.0-33.0); MEAN CORPUSCULAR HGB CONC 31.6 g/dl (32.0-36.5); MEAN CORPUSCULAR VOLUME 95.4 fl (80.0-96.0); MONO # 0.7 10^3/uL (0.0-0.8); MONO % 9.5 % (2.0-8.0); NEUTROPHILS # 4.9 10^3/uL (1.5-8.5); NEUTROPHILS % 67.1 % (36.0-66.0); PLATELET COUNT, AUTOMATED 250 10^3/uL (150-450); RED BLOOD COUNT 4.15 10^6/uL (4.00-5.40); WHITE BLOOD COUNT 7.3 10^3/uL (4.0-10.0)
[2025-03-11 14:48] LABS: ALBUMIN 3.4 G/DL (3.2-5.2); BILIRUBIN,TOTAL 0.6 MG/DL (0.3-1.2); CALCIUM LEVEL 9.2 MG/DL (8.3-10.6); CHOLESTEROL RISK RATIO 3.12 (<5); CREATININE FOR GFR 0.76 MG/DL (0.55-1.30); FREE T4 1.15 NG/DL (0.89-1.76); GLOMERULAR FILTRATION RATE 88.5 (>45); HDL CHOLESTEROL 74.5 MG/DL (>40); LDL CHOLESTEROL 131.9 MG/DL (<100); NON-HDL-C 158.5 MG/DL; POTASSIUM SERUM 4.1 MMOL/L (3.5-5.1); THYROID STIMULATING HORMONE 2.992 uIU/ML (0.55-4.78); TOTAL 25(OH) VITAMIN D 29.8 NG/ML (20.0-100.0); TOTAL PROTEIN 6.5 G/DL (5.7-8.2)
[2025-03-11 15:28] LABS: HEMOGLOBIN A1c 5.9 % (4.0-6.0)
== END ==
LOC: M WUC 09:02
PROVIDERS: ATTEND Nurse Practitioner Adult Health
DX: R73.01 Impaired fasting glucose (principal); E03.9 Hypothyroidism, unspecified; E78.00 Pure hypercholesterolemia, unspecified

== ENCOUNTER → 2025-09-13 | Outpatient (CLI) | payer OTHER ==
[~2025-09-13] MED LIST changes: -DIPH50CA PO; +DIPH50CA31 PO
[2025-09-13 15:14] LABS: BASO # 0.1 10^3/uL (0.0-0.2); BASO % 0.7 % (0.0-1.0); EOS # 0.1 10^3/uL (0.0-0.5); EOS % 2.1 % (0.0-3.0); LYMPH # 1.2 10^3/uL (1.5-5.0); LYMPH % 18.3 % (24.0-44.0); MONO # 0.6 10^3/uL (0.0-0.8); MONO % 8.9 % (2.0-8.0); NEUTROPHILS # 4.7 10^3/uL (1.5-8.5); NEUTROPHILS % 69.6 % (36.0-66.0); PLATELET COUNT, AUTOMATED 219 10^3/uL (150-450)
[2025-09-13 15:16] LABS: FREE T4 1.03 NG/DL (0.89-1.76)
[2025-09-13 15:20] LABS: ALT/SGPT 23.0 U/L (7.0-40); AST/SGOT 23.0 U/L (<34); CALCIUM LEVEL 8.9 MG/DL (8.3-10.6); CARBON DIOXIDE LEVEL 28.0 MMOL/L (20-31); CHLORIDE LEVEL 103.0 MMOL/L (98-107); CHOLESTEROL LEVEL 246.0 MG/DL (<200); CHOLESTEROL RISK RATIO 3.12 (<5); CREATININE FOR GFR 0.79 MG/DL (0.55-1.30); GLOMERULAR FILTRATION RATE 84.0 (>45); LDL CHOLESTEROL 137.3 MG/DL (<100); NON-HDL-C 167.3 MG/DL; POTASSIUM SERUM 4.3 MMOL/L (3.5-5.1); SODIUM LEVEL 142.0 MMOL/L (136-145); TRIGLYCERIDES LEVEL 150.0 MG/DL (<150)
[2025-09-13 15:44] LABS: ESTIMATED AVERAGE GLUCOSE 126.0 MG/DL (60-110)
== END ==
LOC: M WUC 09:46
PROVIDERS: ATTEND Nurse Practitioner Adult Health
DX: R73.01 Impaired fasting glucose (principal); E03.9 Hypothyroidism, unspecified; E78.00 Pure hypercholesterolemia, unspecified; G47.33 Obstructive sleep apnea (adult) (pediatric)

== ENCOUNTER → 2025-10-01 | Outpatient (CLI) | payer OTHER ==
[~2025-10-01] MED LIST changes: +PROHANCE 279.3MG/ML 15ML VIAL As Ordered ONE; +PROHANCE 279.3MG/ML 5ML VIAL As Ordered ONE
== END ==
LOC: M RAD 10:47
PROVIDERS: ATTEND Otolaryngology
DX: H90.42 Sensorineural hearing loss, unilateral, left ear, with unrestricted hearing on the contralateral side (principal)
CPT/HCPCS: 70553; A9579